=== PATIENT | female | born 2000 | race Caucasian/White ===

== ENCOUNTER 2020-12-25 23:33 | Inpatient (IN) ==
[2020-12-25] MEDS ORDERED: RINGER'S SOLUTION,LACTATED 1,000 ML IV ONE (23:46)
[2020-12-25] MEDS ORDERED: ONDANSETRON 4 MG TAB.RAPDIS PO PRN (23:46)
[2020-12-25] MEDS ORDERED: OXYTOCIN/0.9 % SODIUM CHLORIDE 30 UNITS/500 ML BAG IV ONE (23:46)
[2020-12-26] MEDS ORDERED: CLINDAMYCIN IN 0.9 % SOD CHLOR 900 MG/50 ML BAG IV SCH
[2020-12-26] MEDS ORDERED: LIDOCAINE HCL 50 ML VIAL ONE (00:49)
--- NOTE | 2020-12-26 01:07 | HP ---
Chief Complaint - Chief Complaint Date of Service: 12/26/20 Time of Service: 00:15 Chief Complaint: contractions History of Present Illness: 20 yo at 38w5d presents to L&D complaining of increased frequency and intensity of contractions since around 2029 last pm. This complicated by smoker, THC use, and anemia. Rh negative Rubella nonimmune GBS positive Medical History (Last Reviewed 12/26/20 @ 00:31 by Manolo Valdovinos DO) Marijuana abuse (Chronic) Current smoker (Chronic) 1/2 ppd Depression Onset Date: ~2011 Migraines Onset Date: ~2011 Surgical History: Surgical History (Last Reviewed 12/26/20 @ 00:31 by Manolo Valdovinos DO) H/O tooth extraction Onset Date: ~2001 age 2, front teeth H/O wrist surgery Onset Date: ~2013 cyst removal Family History: Family History (Last Reviewed 12/26/20 @ 00:31 by Manolo Valdovinos DO) Mother Asthma Migraines Father Asthma Seizures Social History: (Last Reviewed 12/26/20 @ 00:31 by Manolo Valdovinos DO) Social History: Marital status: Single household members: significant other number of children: 1 current occupational status: employed current occupation: [employer] Highest level of school completed/degree received: 10th grade Sexually Active: Yes how many partners: 1 are you practicing safe sex: No are you practicing safe sex comment: pt is 21w3d Service: No Tobacco: Smoking Status: Current every day smoker tobacco type: cigarettes Smoking cigarettes per day: 10 Alcohol: alcohol intake: never Substance Use: substance use type: marijuana Dietary Habits: caffeine: Yes caffeine comment: 6 cans/day Type: carbonated beverages daily servings of milk/calcium: 0-1 Review Of Systems (GEN) - Review of Systems Generalized/Overall Review: Present: No Symptoms Reported EENTM: Present: No Symptoms Reported Respiratory: Present: No Symptoms Reported Cardiac: Present: No Symptoms Reported Abdominal: Present: Abdominal Pain - contractions Genitourinary: Present: Other - vaginal pressure Musculoskeletal: Present: No Symptoms Reported Neurological: Present: No Symptoms Reported Skin: Present: No Symptoms Reported Endocrine: Present: No Symptoms Reported Allergies/Adverse Reactions: Allergies Allergy/AdvReac Type Severity Reaction Status Date / Time cefaclor [From Ceclor] Allergy Intermediate hives, Verified 12/25/20 15:36 breathing issues Penicillins Allergy Intermediate hives, Verified 12/25/20 15:36 breathing issues Sulfa (Sulfonamide Allergy Intermediate hives, Verified 12/25/20 15:36 Antibiotics) breathing issues Home Medications: HOME MEDICATIONS PNV 153-FA 400 mcg-om3 35 mg-dha 25 mg-epa 5 mg-fish oil chew tablet 1 tab PO DAILY 07/05/20 [Last Taken 12/25/20 08:00] ferrous sulfate 325 mg (65 mg iron) tablet,delayed release 325 mg PO BID #30 tab 10/15/20 [Last Taken 12/25/20 08:00] Exam - Exam Vital Signs: Vital Signs - Last Taken Temp 36.5 C 12/26/20 00:16 Pulse 99 12/26/20 00:16 Resp 18 12/26/20 00:16 BP 123/70 12/26/20 00:16 Pulse Ox 99 12/26/20 00:16 Constitutional: Present: Alert, Oriented x3, Cooperative, Moderate distress ENT Exam: Present: hearing grossly normal Breasts: Present: Exam deferred Respiratory: Present: lungs clear, no respiratory distress Cardiovascular/Chest: Present: regular rate, rhythm, no edema Abdomen: Present: soft, nontender, no rebound tenderness, other - gravid /Rectal: Present: Other - cervix 7/70/-2 Extremity: Present: no pedal edema, no calf tenderness Skin Exam: Present: normal color, warm/dry, no cyanosis Lymphatic: Present: no adenopathy Neurologic: Present: alert, normal mood/affect, oriented x 3 Appearance: Present: appropriate appearance, appropriate insight Eye contact: Present: cooperative, good eye contact Thoughts: Present: normal thought pattern, normal mood /affect Assessment/Plan - Narrative Narrative: admit to L&D. IV Clindamycin for GBS prophylaxis. UDS. Sample of cord for drug screen. - Assessment/Plan (1) Labor established Problem: Acute (2) Anemia Problem: Acute Qualifiers: Anemia type: iron deficiency Iron deficiency anemia type: inadequate dietary iron intake Qualified Code(s): D50.8 - Other iron deficiency anemias (3) Marijuana abuse Problem: Chronic (4) Current smoker Problem: Chronic (5) Group beta Strep positive Problem: Acute (6) Rubella nonimmune status, delivered, current hospitalization Problem: Acute
[2020-12-26 01:12] LABS: Cocaine Ur Negative (NEGATIVE); Urine Barbiturate Negative (NEGATIVE); Urine Benzodiazepines Negative (NEGATIVE); Urine Opiates Negative (NEGATIVE); Urine PCP Negative (NEGATIVE)
[2020-12-26 01:13] LABS: Urine THC Positive (NEGATIVE)
[2020-12-26] MEDS ORDERED: ACETAMINOPHEN 325 MG TABLET PO PRN (01:34)
[2020-12-26] MEDS ORDERED: GLYCERIN/WITCH HAZEL LEAF 40 APPL BOX TP PRN (01:34)
[2020-12-26] MEDS ORDERED: BISACODYL 10 MG SUPP.RECT RC PRN (01:34)
[2020-12-26] MEDS ORDERED: BENZOCAINE/MENTHOL 81 SPRAY CAN TP PRN (01:34)
[2020-12-26] MEDS ORDERED: SENNOSIDES 8.6 MG TABLET PO PRN (01:34)
[2020-12-26] MEDS ORDERED: HYDROCORTISONE 30 APPL TUBE TP PRN (01:34)
[2020-12-26] MEDS ORDERED: OXYTOCIN/0.9 % SODIUM CHLORIDE 30 UNITS/500 ML BAG IV ONE (01:34)
[2020-12-26] MEDS: oxyCODONE HCL/ACETAMINOPHEN 1 TAB TABLET PO PRN ×5 (01:35→20:31)
[2020-12-26] MEDS: IBUPROFEN 800 MG TABLET PO PRN ×3 (01:35→17:04)
--- NOTE | 2020-12-26 01:40 | OR ---
Operative Report - Dictated Report Narrative: Spontaneous vaginal delivery of vigorously crying viable female at 0118 on 12/26/2020 with Apgars 9 and 10, weighing 3062 g in DEREK position with tight nuchal cord x2. Cord clamping delayed approximately 1 minute Placenta delivered complete, intact, with three vessel cord Estimated blood loss: 100 mL Anesthesia: None Lacerations: Right periurethral labial abrasion-no repair necessary History for History for Definition: * The number of deliveries resulting in a live the patient experienced prior to current hospitalization * The previous delivery of live twins or any live multiple gestation is considered one live event. *If primagravida or nulliparous is documented select zero for the number of previous live births. Live Events: Live Events: 1
[2020-12-26] MEDS: FERROUS SULFATE 325 MG TABLET PO SCH ×2 (09:42→20:31)
[2020-12-26] MEDS: DOCUSATE SODIUM 100 MG CAPSULE PO SCH ×2 (09:42→20:31)
[2020-12-26] MEDS: PRENATAL VITS96/IRON FUM/FOLIC 1 TAB TABLET PO SCH (09:42)
[2020-12-26] MEDS ORDERED: RHO(D) IMMUNE GLOBULIN 1,500 UNIT SYRINGE IM ONE (13:44)
[2020-12-27] MEDS: oxyCODONE HCL/ACETAMINOPHEN 1 TAB TABLET PO PRN ×2 (03:40→07:55)
[2020-12-27] MEDS: IBUPROFEN 800 MG TABLET PO PRN (03:40)
[2020-12-27] MEDS: PRENATAL VITS96/IRON FUM/FOLIC 1 TAB TABLET PO SCH ×2 (07:54→17:57)
[2020-12-27] MEDS: FERROUS SULFATE 325 MG TABLET PO SCH ×3 (07:54→20:40)
[2020-12-27] MEDS: DOCUSATE SODIUM 100 MG CAPSULE PO SCH ×3 (07:55→20:40)
--- NOTE | 2020-12-27 08:36 | PN ---
Subjective - Date and Time Seen Date: 12/27/20 Time: 08:36 Objective - Vitals Vitals: Last Vital Signs Temp 36.9 C 12/27/20 07:50 Pulse 90 12/27/20 07:50 Resp 20 12/27/20 07:50 BP 118/79 12/27/20 07:50 Pulse Ox 97 12/27/20 07:50 Patient denies complaints. Bottlefeeding Lochia wnl Abdomen - soft, nontender Uterus -firm, at umbilicus - 1 No calf tenderness Impression: day #1 - s/p spontaneous vaginal delivery. Plan: Continue routine care Assessment/Plan - Problems/Diagnosis (1) Labor established Problem: Acute (2) Anemia Problem: Acute Qualifiers: Anemia type: iron deficiency Iron deficiency anemia type: inadequate dietary iron intake Qualified Code(s): D50.8 - Other iron deficiency anemias (3) Marijuana abuse Problem: Chronic (4) Current smoker Problem: Chronic (5) Group beta Strep positive Problem: Acute (6) Rubella nonimmune status, delivered, current hospitalization Problem: Acute
[2020-12-28] MEDS: IBUPROFEN 800 MG TABLET PO PRN (01:25)
[2020-12-28] MEDS: oxyCODONE HCL/ACETAMINOPHEN 1 TAB TABLET PO PRN (05:39)
[2020-12-28] MEDS: PRENATAL VITS96/IRON FUM/FOLIC 1 TAB TABLET PO SCH (09:00)
[2020-12-28] MEDS: DOCUSATE SODIUM 100 MG CAPSULE PO SCH (09:09)
[2020-12-28] MEDS: FERROUS SULFATE 325 MG TABLET PO SCH (09:09)
--- NOTE | 2020-12-28 11:56 | PN ---
Subjective - Date and Time Seen Date: 12/28/20 Time: 11:53 Objective - Vitals Vitals: Last Vital Signs Temp 36.5 C 12/28/20 02:19 Pulse 67 12/28/20 02:19 Resp 18 12/28/20 02:19 BP 111/66 12/28/20 02:19 Pulse Ox 95 12/28/20 02:19 Patient denies complaints. Bottlefeeding. Specifically denies headache, and epigastric pain, or visual changes. Lochia wnl Abdomen - soft, nontender Uterus -firm, at umbilicus - 2 No calf tenderness Impression: day #2 - s/p spontaneous vaginal delivery. Elevated blood pressure x2 this morning, back to normal now. Plan: Routine discharge instructions. Preeclampsia precautions. Blood pressure check 1 week in office. Assessment/Plan - Problems/Diagnosis (1) Labor established Problem: Acute (2) Anemia Problem: Acute Qualifiers: Anemia type: iron deficiency Iron deficiency anemia type: inadequate dietary iron intake Qualified Code(s): D50.8 - Other iron deficiency anemias (3) Marijuana abuse Problem: Chronic (4) Current smoker Problem: Chronic (5) Group beta Strep positive Problem: Acute (6) Rubella nonimmune status, delivered, current hospitalization Problem: Acute (7) Elevated blood pressure reading without diagnosis of hypertension Problem: Acute
--- NOTE | 2020-12-28 12:01 | DS ---
OB Discharge Summary (1) Labor established Status: Acute (2) Anemia Status: Acute Qualifiers: Anemia type: iron deficiency Iron deficiency anemia type: inadequate dietary iron intake Qualified Code(s): D50.8 - Other iron deficiency anemias (3) Marijuana abuse Status: Chronic (4) Current smoker Status: Chronic (5) Group beta Strep positive Status: Acute (6) Rubella nonimmune status, delivered, current hospitalization Status: Acute (7) Elevated blood pressure reading without diagnosis of hypertension Status: Acute Delivery Date: 12/26/20 Delivery Time: 01:18 :: 2 Para:: 2 Gestational weeks:: 38 Gestational days:: 5 Intrapartum Procedures: Spontaneous Vaginal Delivery, Delivered Procedures: None /OP Complications: Other - elevated BP's x 3 on PPD#2 - Discharge Information Date of Discharge: 12/28/20 Hospital Course: 20-year-old 2 now para 2 admitted at 38 weeks 5 days in labor. Her admission urine drug screen was positive for marijuana. Patient had a uncomplicated unmedicated delivery. course was complicated by a few elevated blood pressures on day 2. Patient was completely asymptomatic. She was discharged home with preeclampsia precautions and to follow-up in 1 week for a blood pressure check. Discharge Location: Home Disposition: Home self-care Additional Patient Instructions (free text): Nunu, your follow up is on January 22, 2021 at 9:[address] Valdovinos. Jacek follow up is with Dr. López on Thursday December 31, 2020 at 3:45pm. Bottle feed Elyssa every 3 to 4 hours, burping well. Rest when your baby rests. Elyssa has passed her CHD and her metabolic screen has been drawn. She has passed her hearing screen in both ears. Blood type - O+ weight - 6 lb 12 oz Discharge weight - 6 lb 3.8 oz Bilirubin today is 3.9 Always use safe sleeping practices, always place her to sleep in her own bed on her back. No co- sleeping, no heavy blankets, bumper pad, stuffed animals or pillows in sleeping area. Thank you for choosing [facility] for your special event, we hope we have exceeded your expectations for your hospital stay. If you have any concerns or questions please call the [facility] [phone]. [facility] [phone] or PEDS [phone]. Prescriptions (Any new or edited meds): Ibuprofen [Motrin] 200 - 800 mg PO Q6H PRN #100 tab PRN Reason: Pain Complete Home Medications List: Complete Home Medication List: PNV 153-FA 400 mcg-om3 35 mg-dha 25 mg-epa 5 mg-fish oil chew tablet 1 tab PO DAILY 07/05/20 ferrous sulfate 325 mg (65 mg iron) tablet,delayed release 325 mg PO BID #30 tab 10/15/20 Ibuprofen [Motrin] 200 - 800 mg PO Q6H PRN #100 tab 12/27/20 - Information Weight (Grams): 3,062 Sex: Female Score 1 min: 9 Score 5 min: 10 Complications: None Other Complications: tight nuchal 2. precipitous delivery
[2020-12-28 13:06] VITALS: BP 129/82
== END 2020-12-28 12:30 | disposition home or self-care (01) | DRG 807 ==
LOC: OBCLINIC 23:33 → OB 12-26 00:12
PROVIDERS: ADMIT Obstetrics & Gynecology; ATTEND Obstetrics & Gynecology